=== PATIENT | male | born 2000 | race Caucasian/White ===

== ENCOUNTER 2020-01-06 03:18 | Emergency (ER) | payer BC ==
[~2020-01-06] VITALS: Ht 188 cm; Wt 93.0 kg
--- NOTE | 2020-01-06 03:28 | NUR ---
PT BIBA FOR [facility] AFTER TAKING ACID TONIGHT. PT CONNECTED TO ALL MONITORS. TACHY, ALL OTHER VSS. NO NEEDS EXPRESSED. AWAITING EDMD ASSESSMENT.
--- NOTE | 2020-01-06 04:03 | NUR ---
PT WALKED TO PHONE TO ATTEMPT TO CALL MOTHER. NO ANSWER. PT PROVIDED MOTHER'S, FATHER'S AND SISTER'S PHONE NUMBER. ATTEMPTED TO CALL MOTHER AND FATHER WITH NO SUCCESS. THIS RN WAS ABLE TO SPEAK WITH PT'S SISTER. SISTER WAS ALSO TAKING ACID TONIGHT AND IS UNABLE TO PICK PT UP AT THIS TIME. SISTER STATES THAT SHE WILL CALL PT'S FATHER AND HAVE HIM CALL [facility]. PT'S FATHER CALLED BACK AT [phone] AND WILL BE COMING FROM [place] AT THIS TIME TO PICK PT UP.
--- NOTE | 2020-01-06 04:11 | NUR ---
PT OFFERED MEDICATION TO HELP HIM CALM DOWN AND DECLINED. PT OFFERED FOOD AND DECLINED. PT ACCEPTED WATER AND WAS PROVIDED WITH 2 CUPS. PT DECLINED BLANKETS AND OTHER COMFORT MEASURES. NO NEEDS EXPRESSED.
[2020-01-06 04:31] VITALS: BP 127/74
--- NOTE | 2020-01-06 04:33 | NUR ---
PT AGREEABLE TO VS ASSESSMENT. VSS. PT STILL DECLINING COMFORT MEASURES, FOOD AND MEDICATIONS. NO NEEDS EXPRESSED. AWAITING FATHER TO PICK PT UP.
--- NOTE | 2020-01-06 04:40 | NUR ---
MOTHER: LILIA IRWIN [phone] FATHER: GABRIEL IRWIN [phone] SISTER: KOURTNEY ALIDA [phone]
--- NOTE | 2020-01-06 05:49 | NUR ---
PT DC WITH FATHER PT IS UNABLE TO CARE FOR SELF AT THIS TIME AND DC ISN NOT SAFE ALONE. PT AMB TO DC DESK WITH STEADY GAIT AND ALL BELONGINGS. ALL QUESTIONS ANSWERED.
== END 2020-01-06 05:52 | disposition home or self-care (01) ==
LOC: ED 03:30
DX: F16.10 Hallucinogen abuse, uncomplicated (principal)
CPT/HCPCS: 99283